=== PATIENT | female | born 2000 | race Caucasian/White ===

== ENCOUNTER 2018-05-29 15:03 | Outpatient (CLI) | payer OTHER ==
[~2018-05-29 15:03] MED LIST: Iopamidol 370 76% 100 ML VIAL ONE
--- NOTE | 2018-05-29 16:16 | CT ---
CT ABDOMEN AND PELVIS WITH IV AND ORAL CONTRAST 05/29/18 HISTORY: Abdominal pain. Nausea, vomiting, diarrhea. FINDINGS: Lung bases are clear. A lobular 0.4 cm calculus is present within a nondilated calyx at the mid porti on right kidney. Two additional tiny calcifications are present on the right and a single tiny calcif ication at the inferior pole of the left kidney. Urinary collecting systems are decompressed. The liver, spleen, adrenal glands, and pancreas are within normal limits. No enlarged lymph nodes or free fluid. No evidence of bowel obstruction or inflammation. Urinary bladder is completely decompres sed. Leftward convexed curvature of the lumbar spine on the coronal images. IMPRESSION: Nonobstructing bilateral renal calculi, measuring up to 0.4 cm greatest diameter on the right. No evidence of bowel inflammation or other acute abnormalities to explain periumbilical pain. POS: [facility]
== END 2018-05-29 15:04 | disposition home or self-care (01) ==
LOC: BICCT 15:03
PROVIDERS: ATTEND Internal Medicine
DX: R11.2 Nausea with vomiting, unspecified (principal); R10.33 Periumbilical pain; R19.7 Diarrhea, unspecified; N20.0 Calculus of kidney
CPT/HCPCS: 74177; Q9967

== ENCOUNTER 2018-08-14 07:27 | Outpatient (CLI) | payer OTHER ==
--- NOTE | 2018-08-14 13:27 | NM ---
Nuclear medicine gastric emptying evaluation [employer]: 2.1 mCi technetium 99m sulfur colloid, oral ingestion CLINICAL HISTORY: Nausea with vomiting, unspecified FINDINGS: Using geometric mean curve, an estimated T1/2 time for gastric emptying is 76 minutes. Ther e is 89% emptying at 189 minutes, and 92% emptying by 241 minutes. IMPRESSION: Gastric imaging half-time of 76 minutes.
== END 2018-08-14 07:28 | disposition home or self-care (01) ==
LOC: NM 07:27
PROVIDERS: ATTEND Internal Medicine
DX: R11.2 Nausea with vomiting, unspecified (principal); R19.7 Diarrhea, unspecified
CPT/HCPCS: 78264; A9541